=== PATIENT | male | born 1950 | race Caucasian/White ===

== ENCOUNTER 2025-04-14 12:20 | Emergency (ER) | payer MEDICARE ==
[2025-04-14] MEDS ORDERED: Sodium Chloride 0.9% 10 ML Syringe FLUSH PRN (12:30)
[2025-04-14 12:45] LABS: BASOPHILS ABSOLUTE AUTO 0.04 K/uL (0.00-0.10); BASOPHILS PERCENT AUTO 0.4 % (0.1-1.3); EOSINOPHILS ABSOLUTE AUTO 0.13 K/uL (0.00-0.40); EOSINOPHILS PERCENT AUTO 1.2 % (0.0-5.4); IMMATURE GRAN ABSOLUTE AUTO 0.05 K/uL (0.00-0.23); IMMATURE GRAN PERCENT AUTO 0.5 % (0.0-0.7); LYMPHOCYTES ABSOLUTE AUTO 1.52 K/uL (0.8-3.3); LYMPHOCYTES PERCENT AUTO 14.6 % (11.4-47.7); MONOCYTES ABSOLUTE AUTO 1.07 K/uL (0.20-0.90); MONOCYTES PERCENT AUTO 10.2 % (3.3-12.6); NEUTROPHILS ABSOLUTE AUTO 7.63 K/uL (1.0-7.6); NEUTROPHILS PERCENT AUTO 73.1 % (40.0-78.1); PLATELET COUNT,PLT 331 K/uL (130-375); RED BLOOD CELL COUNT 4.85 M/uL (4.14-5.76); WHITE BLOOD CELL COUNT,WBC 10.4 K/uL (3.2-11.0)
[2025-04-14 13:05] LABS: INR 1.0; PTT,PARTIAL THROMBOPLSTIN TIME 27.4 sec (21.8-27.3)
[2025-04-14 13:10] LABS: BLOOD UREA NITROGEN,BUN 17.0 mg/dL (7-18); CARBON DIOXIDE,CO2 31.0 mmol/L (21-32); CHLORIDE,CL 103.0 mmol/L (100-108); CREATININE 1.1 mg/dL (0.8-1.3); EST CRCL DRUG DOSING (CG) 61.76 mL/min; ESTIMATED GFR 71.0 mL/min (>60); GLUCOSE RANDOM 98.0 mg/dL (74-106); POTASSIUM,K 4.5 mmol/L (3.6-5.2); SODIUM,NA 139.0 mmol/L (140-148); TROPONIN I HIGH SENSITIVITY 5.1 pg/mL (<=60.3)
== END 2025-04-14 17:10 ==
LOC: JP.ED 12:20
DX: G93.9 Disorder of brain, unspecified (principal); Z79.899 Other long term (current) drug therapy
CPT/HCPCS: 36415; 70450; 70450-26; 70496; 70496-26; 70498; 70498-26; 80048; 84484; 85025; 85610; 85730; 93005; 99285